=== PATIENT | female | born 1975 | race Caucasian/White ===

== ENCOUNTER 2018-01-03 11:45 | Emergency (ER) | payer MEDICAID ==
[~2018-01-03] VITALS: Ht 165.1 cm; Wt 129.0 kg
[~2018-01-03 11:45] MED LIST: ALBU0.63 NEB; IBUP-1222 PO
[2018-01-03 11:51] VITALS: BP 140/80
[2018-01-03] MEDS ORDERED: LIDOCAINE-MPF 2% ,5ML ONE (11:59)
[2018-01-03] MEDS ORDERED: LIDOCAINE 2%, 20ML SQ ONE (12:00)
[2018-01-03] MEDS ORDERED: BACITRACIN ZINC OINT 500U/GM, 0.9 GM ONE (12:40)
== END 2018-01-03 13:03 | disposition home or self-care (01) ==
LOC: ED 12:30
DX: L02.213 Cutaneous abscess of chest wall (principal); J44.9 Chronic obstructive pulmonary disease, unspecified; Z98.51 Tubal ligation status; F17.210 Nicotine dependence, cigarettes, uncomplicated
CPT/HCPCS: 99283